=== PATIENT | female | born 1965 | race Caucasian/White ===

== ENCOUNTER 2016-12-29 11:02 | Emergency (ER) | payer MEDICAID, OTHER ==
[2016-12-29 11:19] VITALS: RESP 16; TEMP 97.9
--- NOTE | 2016-12-29 12:04 | EDPHY ---
H & P Time Seen by Provider: 12/29/16 11:43 HPI/ROS: Chief complaint: [ sore throat for 3 days with fever and some soreness in the neck as well as right thigh lesion ] HPI: [due to annular female in prior good health. She noted some 3 days ago developing a progressive sore throat which is moderate to severe. As well as fever to as high as 101.3. She is also noting some adenopathy particular on the right as well as radiation to the right ear, pain with swallowing especially the pain to the right ear with swelling as well as the general stiffness in the neck due to the pain of the glandular swelling in the anterior surface. Of note is that while she has not been exposed to a known case of strep she has a in 10-year-old at home. She was seen yesterday for lesion on the right thigh. It was a bit of a pustule type area which was drained by her desktop support technician. In the interim she has yet to hear of the culture, and is not on any antibiotics. In the interim there is develops area redness surrounding the area has seemingly expanded. Finally, there is an area on the instep of the right ankle that has been somewhat sore for approximately 1 month and broke down became denuded the last 2 days. ] ROS: Constitutional - see above Eyes - no discharge. ENT - see above Integument - no rashes. Neurological - moderate headache however this since the difficulty with the neck she feels because the anterior swelling Immunological - anterior adenopathy right greater than left Smoking Status: Never smoked Physical Exam: Gen: Well developed, well nourished. Nontoxic, tall woman. HEENT: Normocephalic. Ears: TMs are clear. Hearing normal. Eyes: PERRL. No conjunctival injection or pallor. no jaundice. Nose: No nasal discharge. Sinuses are nontender. Throat: Moderate erythema to the posterior pharynx with some exudates on the right greater than left tonsil. No effacement of the pillars. No involvement of the uvula per se. Neck: Trachea is in the ML. No laryngeal tenderness. There is moderate anterior adenopathy right greater than left. No posterior adenopathy. I am able to bring her chin to her manubrium without any difficulty or strain Skin: Good color, without pallor. There is no diaphoresis. Skin is warm and dry , without diaphoresis. On the midportion of the lateral aspect of the right thigh there is an area of 6 cm of erythema, this is a homogeneous pink discoloration without demarcation. On the center there is a 1 cm scab like area without any pus emanating. Further, on the instep of the right ankle there is an abraded area without any erythema or warmth or discharge. Constitutional: Initial Vital Signs Temperature (C) 36.6 C 12/29/16 11:06 Heart Rate 76 12/29/16 11:06 Respiratory Rate 16 12/29/16 11:06 Blood Pressure 142/74 H 12/29/16 11:06 O2 Sat (%) 94 12/29/16 11:06 O2 Delivery Mode Room Air Allergies/Adverse Reactions: acetaminophen [From Vicodin] Allergy (Intermediate, Verified 12/29/16 11:19) Rash codeine Allergy (Intermediate, Verified 12/29/16 11:19) Rash hydrocodone bitartrate [From Vicodin] Allergy (Intermediate, Verified 12/29/16 11:19) Rash oxycodone HCl [From Percocet] Allergy (Intermediate, Verified 12/29/16 11:19) Rash Home Medications: Medication Instructions Recorded Multivitamin [Multi-Day Vitamins] 03/21/16 Tamoxifen Citrate 03/21/16 Azithromycin [Zithromax] 250 mg PO DAILY #6 tab 12/29/16 Cyclobenzaprine [Flexeril 10 MG 20 mg PO HS PRN #10 tab 12/29/16 (*)] Hydrochlorothiazide 12/29/16 Losartan Potassium 12/29/16 Lotemax 12/29/16 Venlafaxine HCl 12/29/16 Medical Decision Making ED Course/Re-evaluation: We had discussion regarding management. She would prefer something that would take care abdominal her strep throat but also the developing cellulitis/ carbuncle on the right thigh. Thus, Zithromax would work. However,O of note is that there is virtually no known exposure to tick bites or endemic areas of Lyme disease, no recent travel. The lesion on the right thigh is round red, but does not have variable discoloration is seen typically for Lyme and there is a central necrotic area that seemed to start the whole thing in the 1st place. Thereby line would be next doing heard of Differential Diagnosis: Diagnostic considerations include, but are not limited to, the following: URI, sinusitis, pharyngitis, otitis media, pneumonia, allergy, influenza. Furthermore, with the cutaneous changes as noted above, would also consider possible cellulitis, carbuncle or furunculosis. - Data Points Laboratory Results: 12/29/16 11:16 Group A Strep Screen POSITIVE H (NEGATIVE) Departure - Departure Disposition: Home, Routine, Self-Care Clinical Impression: Acute streptococcal pharyngitis, Furunculosis Condition: Good Instructions: Strep Throat (ED), Furunculosis and Carbunculosis (ED) Additional Instructions: Use [id number] chlorhexidine as a soap, twice daily for the next 4 weeks No shaving for the next 4 weeks, anywhere! Take the Zithromax for the next 5 days. Tylenol and Advil works well together in combination: 1300 mg Extended Release Tylenol and 600 mg Advil every 8 hours, as needed for fever or pain Referrals: Urvashi Marcelino MD [Primary Care Provider] - As per Instructions Prescriptions: Azithromycin [Zithromax] 250 mg PO DAILY #6 tab Cyclobenzaprine [Flexeril 10 MG (*)] 20 mg PO HS PRN #10 tab PRN Reason: Sleep/Insomnia
[2016-12-29 12:20] VITALS: BP 162/81; PULSE 66; O2SAT 98
== END 2016-12-29 12:11 | disposition home or self-care (01) ==
LOC: CED 11:02
DX: J02.0 Streptococcal pharyngitis (principal); L02.92 Furuncle, unspecified
CPT/HCPCS: 87880-PO

== ENCOUNTER → 2017-08-17 | Outpatient (CLI) | payer MEDICAID | LOC: CIMAGING 12:20 | PROVIDERS: ATTEND Family Medicine | DX: R05 Cough (principal) | CPT/HCPCS: 71046-PO ==

== ENCOUNTER 2017-08-19 09:06 | Emergency (ER) | payer MEDICAID ==
[2017-08-19 09:19] VITALS: BP 133/73; PULSE 61; RESP 16; TEMP 97.7; O2SAT 96
--- NOTE | 2017-08-19 09:40 | EDPHY ---
H & P Time Seen by Provider: 08/19/17 09:14 HPI/ROS: Chief complaint. Sore throat HPI. 52-year-old female presents emergency department with upper respiratory symptoms and congestion for 3 weeks. Symptoms are worse at night when she wears her CPAP. Better during the day. Sick family contacts. Yesterday she noticed some blisters on her throat. She had a cough at the beginning for 10 days now no cough. Chest x-ray 2 days ago normal. No fever. No abdominal pain or vomiting or diarrhea. No rash. ROS Constitutional. no fever/chills, no weakness Eyes. no problems with vision ENT. Sore throat and swollen neck glands Cardiovascular. no chest pain Respiratory. no shortness of breath, no cough Abdominal. no abdominal pain, no nausea/vomiting, no diarrhea . no problems urinating MS. no calf pain/swelling, no neck/back pain, no joint pain Skin. no rash Lymph. no swollen glands Neuro. no headache, no dizziness, no difficulty walking or with speech Past Medical/Surgical History: Hysterectomy, hypertension, asthma Social History: , nonsmoker, no alcohol Smoking Status: Never smoked Physical Exam: General Appearance: Alert well-developed female mild distress vital signs are stable Eyes: Pupils equal and round no pallor or injection. ENT, tympanic membranes are normal. Pharynx slightly injected without exudate. No obvious blisters are visualized. Mild anterior cervical adenopathy Respiratory: There are no retractions, lungs are clear to auscultation. Cardiovascular: Regular rate and rhythm. Gastrointestinal: Abdomen is soft and nontender, no masses, bowel sounds normal. Neurological: Awake and alert, sensory and motor exams grossly normal. Skin: Warm and dry, no rashes. Musculoskeletal: Neck is supple nontender. Extremities symmetrical, full range of motion. Psychiatric: Patient is oriented X 3, there is no agitation. Constitutional: Initial Vital Signs Temperature (C) 36.5 C 08/19/17 09:16 Heart Rate 61 08/19/17 09:16 Respiratory Rate 16 08/19/17 09:16 Blood Pressure 133/73 H 08/19/17 09:16 O2 Sat (%) 96 08/19/17 09:16 O2 Delivery Mode Room Air Allergies/Adverse Reactions: acetaminophen [From Vicodin] Allergy (Intermediate, Verified 08/19/17 09:19) Rash codeine Allergy (Intermediate, Verified 08/19/17 09:19) Rash hydrocodone bitartrate [From Vicodin] Allergy (Intermediate, Verified 08/19/17 09:19) Rash oxycodone HCl [From Percocet] Allergy (Intermediate, Verified 08/19/17 09:19) Rash Home Medications: Medication Instructions Recorded Multivitamin [Multi-Day Vitamins] 03/21/16 Tamoxifen Citrate 03/21/16 Lotemax 12/29/16 Clonidine 08/19/17 Modafinil 08/19/17 traZODone 08/19/17 Medical Decision Making ED Course/Re-evaluation: Strep is negative. Re-evaluation at 9:50 a.m.. Patient is stable. The patient and I discussed laboratory evaluation, treatment plan including criteria for return importance of follow-up and further evaluation. She expresses understanding and agreement Differential Diagnosis: This is likely viral syndrome. The patient has been ill for 3 weeks. It is possible this could be influenza however she is clearly out of the treatment window. I also considered strep pharyngitis. - Data Points Laboratory Results: 08/19/17 08/19/17 Unknown 09:30 Group A Strep Screen NEGATIVE (NEGATIVE) Group A Strep DNA Pending Departure - Departure Disposition: Home, Routine, Self-Care Clinical Impression: Viral pharyngitis Condition: Good Instructions: Pharyngitis (ED) Additional Instructions: Drink plenty of fluids and stay hydrated. Ibuprofen 600 mg every 6 hr for fever and discomfort. Return for worsening symptoms including difficulty swallowing or breathing. Recheck in 2-3 days if not improving Referrals: Urvashi Marcelino MD [Medical Doctor] - 2-3 days, if not improved
== END 2017-08-19 10:00 | disposition home or self-care (01) ==
LOC: CED 09:06
DX: J02.8 Acute pharyngitis due to other specified organisms (principal); B97.89 Other viral agents as the cause of diseases classified elsewhere; I10 Essential (primary) hypertension; J45.909 Unspecified asthma, uncomplicated
CPT/HCPCS: 87880-PO

== ENCOUNTER → 2017-10-14 | Outpatient (CLI) | payer MEDICAID | LOC: FCPNEURO 20:00 | PROVIDERS: ATTEND Psychiatry & Neurology Sleep Medicine | DX: G47.33 Obstructive sleep apnea (adult) (pediatric) (principal) ==

== ENCOUNTER → 2018-08-22 | Outpatient (CLI) | payer MEDICAID | LOC: BMCIMAGING 13:47 | PROVIDERS: ATTEND Physician Assistant Medical | DX: R05 Cough (principal); R50.9 Fever, unspecified; R06.2 Wheezing ==

== ENCOUNTER → 2018-09-23 | Outpatient (CLI) | payer MEDICAID | LOC: BMCIMAGING 15:35 | PROVIDERS: ATTEND Nurse Practitioner Adult Health | DX: Z01.818 Encounter for other preprocedural examination (principal); R09.81 Nasal congestion ==